=== PATIENT | female | born 1930 | race Two or more races ===

== ENCOUNTER 2020-03-23 11:43 | Emergency (ER) | payer OTHER ==
[~2020-03-23] VITALS: Ht 149.9 cm; Wt 43.5 kg
[2020-03-23] MEDS ORDERED: HYDROCHLOROTHIA25 MG PO (11:56)
[2020-03-23] MEDS ORDERED: ATORVASTATIN CA80 MG PO (11:57)
[2020-03-23] MEDS ORDERED: ADULT LOW DOSE81 M1 PO (11:58)
[2020-03-23] MEDS ORDERED: PLAVIX75 MG PO (11:58)
[2020-03-23] MEDS ORDERED: CARVEDILOL3.125 MG PO (11:58)
[2020-03-23] MEDS ORDERED: COZAAR100 MG PO (11:58)
[2020-03-23] MEDS ORDERED: NORVASC10 MG PO (11:59)
[2020-03-23] MEDS ORDERED: FORTAMET500 MG PO (12:00)
[2020-03-23] MEDS ORDERED: XARELTO10 MG PO (12:01)
[2020-03-23] MEDS ORDERED: HYDRALAZINE HCL25 MG PO (12:01)
== END 2020-03-23 15:54 | disposition home or self-care (01) ==
LOC: ER 11:43
DX: K52.89 Other specified noninfective gastroenteritis and colitis (principal); Z03.818 Encounter for observation for suspected exposure to other biological agents ruled out; R19.7 Diarrhea, unspecified